=== PATIENT | female | born 1990 | race African-American/Black ===

== ENCOUNTER 2018-11-17 13:28 | Emergency (ER) | payer OTHER ==
[~2018-11-17] VITALS: Ht 167.6 cm; Wt 65.8 kg
[2018-11-17 14:20] VITALS: BP 126/86
--- NOTE | 2018-11-17 14:20 | NUR ---
ED Nurse Note: A/OX4. AMBULATED IN TO ER DUE TO LOWER RIGHT ABDOMINAL PAIN 05/16 WITH N/D X 2-3 WEEKS. NO FEVER.
[2018-11-17] MEDS ORDERED: Acetaminophen 500mg (ES) tab ORAL ONE (15:00)
[2018-11-17 15:21] LABS: APPEARANCE,URINE CLEAR; BILIRUBIN, URINE NEGATIVE (NEGATIVE); COLOR,URINE PALE YELLOW; GLUCOSE, URINE (UA) NEGATIVE (NEGATIVE); KETONES,URINE NEGATIVE (NEGATIVE); LEUKOCYTE ESTERASE ,URINE NEGATIVE (NEGATIVE); NITRITE,URINE NEGATIVE (NEGATIVE); PH,URINE 8 (4.5-8.0); PROTEIN,URINE NEGATIVE (NEGATIVE); UROBILINOGEN,URINE NORMAL MG/DL (0.0-1.0)
--- NOTE | 2018-11-17 17:16 | Diagnostic Imaging Report ---
Indication: Pelvic pain, positive test Technique: Transabdominal and transvaginal images. Doppler interrogation of the bilateral ovaries Comparison: none Findings: Uterus measures 12.3 cm in length by 6.2 cm AP, is slightly retroflexed. Endometrium measures 13 mm thick. No intrauterine gestational sac demonstrated. A tiny anechoic area is seen in the upper endometrium but this is nonspecific in appearance. No myometrial abnormality. Right ovary measures 3.3 cm length. Left ovary measures 4.7 cm length. Left ovary demonstrates a 3 cm diameter corpus luteum. Both ovaries demonstrate normal flow on Doppler imaging. Small amount of free cul-de-sac fluid is demonstrated Impression: No definite intrauterine demonstrated. Differential considerations include very early , spontaneous , sonographically occult ectopic . Very tiny fluid collection within the upper uterine fundus, nonspecific, insufficient to consider a gestational sac. This could represent an early gestational sac, single gestational sac of ectopic , versus other possibility Small amount of free pelvic fluid, likely physiologic
[2018-11-17] MEDS ORDERED: TYLENOL EXTRA500 MG ORAL (17:33)
--- NOTE | 2018-11-17 17:33 | Emergency Room Report ---
History of Present Illness General Chief Complaint: Female Urogenital Problems Source: Patient Present Illness HPI 28-year-old female patient presents the ER complaining of suprapubic pain for the past few weeks. Reports diarrhea symptoms for the past few days. Denies blood in diarrhea. Denies recent travel. Reports diarrhea is watery. Reports pain and fullness when urinating. Reports relief of symptoms after urinating. Denies blood in urine. Denies vaginal discharge. Denies foul-smelling odor. Denies fever, chest pain, shortness of breath. Denies flank pain. Reports recent sexual activity with 1 partner, denies concern for STI. Denies other aggravating or relieving factors. Reports history of , states had an performed. . reports last menstrual period was on the eighth of last month, states was normal. Reports able to pass flatus. Allergies: Coded Allergies: FISH CONTAINING PRODUCTS (Verified Allergy, Severe, Hives, 11/17/18) SHELLFISH DERIVED (Verified Allergy, Severe, Hives, 11/17/18) Patient History Past Medical History: see triage record Last Menstrual Period: Now: No Reviewed Nursing Documentation: PMH: Agreed; PSxH: Agreed Nursing Documentation-PMH Past Medical History: No Stated History Review of Systems All Other Systems: negative except mentioned in HPI Physical Exam Vital Signs Date Time Temp Pulse Resp B/P (MAP) Pulse Ox O2 Delivery O2 Flow Rate FiO2 11/17/18 14:16 86 18 126/86 98 Room Air Sp02 EP Interpretation: reviewed, normal General Appearance: well appearing, no apparent distress, alert, GCS 15, non- toxic Head: normocephalic, atraumatic Eyes: bilateral eye normal inspection, bilateral eye PERRL ENT: hearing grossly normal, normal pharynx, no angioedema, normal voice, uvula midline, moist mucus membranes Neck: full range of motion Respiratory: lungs clear, normal breath sounds, no rhonchi, no respiratory distress, no accessory muscle use, no wheezing, speaking full sentences Cardiovascular #1: regular rate, rhythm, no edema Gastrointestinal: non tender, soft, no mass, non-distended, no guarding, no rebound Genitourinary: no CVA tenderness Musculoskeletal: back normal, digits/nails normal, gait/station normal, normal range of motion, non-tender Neurologic: alert, oriented x3, responsive, motor strength/tone normal, sensory intact Psychiatric: mood/affect normal Skin: no rash Lymphatic: no adenopathy Medical Decision Making PA Attestation Dr. Lambert is my supervising Physician whom patient management has been discussed with. Diagnostic Impression: Primary Impression: ER Course Pt presents to ED c/o suprapubic pain. DDX considered but are not limited to cystitis, pyelonephritis, STI, vaginitis, , BV, yeast infection. No abdominal TTP, negative obturator, negative Redd, negative Rovsing, low suspicion for cholecystitis or appendicitis, does not require imaging or labs at this time. VITAL SIGNS are WNL, patient is afebrile. Ordered UA. ER COURSE Denies recent travel, no blood in stool, does not require antibiotics at this time. Advised patient drink plenty of fluids. Take Tylenol for pain symptoms. UA results negative, does not indicate UTI,will not treat with abx. Urine positive. Patient may take Tylenol for pain symptoms. Do not take Motrin/ibuprofen. Pelvic US shows No definite intrauterine demonstrated. Differential considerations include very early , spontaneous , sonographically occult ectopic . Very tiny fluid collection within the upper uterine fundus, nonspecific, insufficient to consider a gestational sac. This could represent an early gestational sac, single gestational sac of ectopic , versus other possibility Small amount of free pelvic fluid, likely physiologic If concern for STI, followup with STI clinic for testing and treatment. Denies STI concern. Patient is resting comfortably in chair, nontoxic appearing, in no acute distress. Patient states they feel better and is ready to go home. Advised patient to follow-up with [facility] specialist in 1-2 days, states she is a [place] patient will follow-up tomorrow. Advised patient on need for repeat ultrasound and beta quant levels to be drawn. Informed patient that likely early , no adnexal masses noted on ultrasound, patient resting comfortably no acute distress, low suspicion for ectopic at this time. Likely early . ER precautions given. Return to the ER immediately for new or worsening of symptoms including worsening of abdominal pain. DISCHARGE Patient is stable for discharge. Patient resting comfortably, in no acute distress, nontoxic appearing, talking without difficulty. Will provide with patient care instructions and any necessary prescriptions. Patient understands and agrees to treatment plan. Patient encouraged to drink plenty of fluids. Patient to take medication as instructed. Care plan and follow-up instructions provided. Patient questions asked and answered. Reports understanding and agreement to treatment plan. Patient instructed to follow-up with primary care provider in 3 - 5 days. ER precautions given. Patient instructed to return to ER immediately for any new or worsening of symptoms. Including but not limited to fever, abdominal pain , intractable vomiting. - Please note that this Emergency Department Report was dictated using [employer] hydrant installer technology software, occasionally this can lead to erroneous entry secondary to interpretation by the dictation equipment. Labs Test 11/17/18 14:45 Urine Color Pale yellow Urine Appearance Clear Urine pH 8 (4.5-8.0) Urine Specific [place] 1.010 (1.005-1.035) Urine Protein Negative (NEGATIVE) Urine Glucose (UA) Negative (NEGATIVE) Urine Ketones Negative (NEGATIVE) Urine Blood Negative (NEGATIVE) Urine Nitrite Negative (NEGATIVE) Urine Bilirubin Negative (NEGATIVE) Urine Urobilinogen Normal MG/DL (0.0-1.0) Urine Leukocyte Esterase Negative (NEGATIVE) Urine HCG, Qualitative Positive (NEGATIVE) CT/MRI/US Diagnostic Results CT/MRI/US Diagnostic Results : Imaging Test Ordered: Pelvic ultrasound Impression Impression: No definite intrauterine demonstrated. Differential considerations include very early , spontaneous , sonographically occult ectopic . Very tiny fluid collection within the upper uterine fundus, nonspecific, insufficient to consider a gestational sac. This could represent an early gestational sac, single gestational sac of ectopic , versus other possibility Small amount of free pelvic fluid, likely physiologic Last Vital Signs Date Time Temp Pulse Resp B/P (MAP) Pulse Ox O2 Delivery O2 Flow Rate FiO2 11/17/18 14:20 86 18 126/86 98 Room Air Disposition: HOME, SELF-CARE Condition: Stable Scripts Acetaminophen* (TYLENOL EXTRA STRENGTH*) 500 Mg Tablet 500 MG ORAL Q8H PRN for Prn Headache/Temp > 101, #30 TAB 0 Refills Prov: Asif Loco 11/17/18 Referrals: [facility],REFERRING (PCP) Patient Instructions: First Trimester of , [id number] Additional Instructions: Followup with OBGYN in 1-2 days. Take medications as directed. Take Tylenol for pain, do not take Ibuprofen. Patient questions asked and answered. ER precautions given, patient instructed to return to ER immediately for any new or worsening of symptoms including but not limited to chest pain, SOB, intractable vomiting, profuse vaginal bleeding, abdominal pain. Asif Loco Nov 17, 2018 17:33
[2018-11-17 17:40] VITALS: BP 121/85
--- NOTE | 2018-11-17 17:40 | NUR ---
ED Nurse Note: A/Ox4. Pt is cleared by LINDSAY Belcher. DC instruction and prescriptions given, pt verbalized understanding. IV/ID wristband removed. All belongings taken by pt. Denies pain at this time. Pt ambulated out of ER with steady gait.
== END 2018-11-17 17:40 | disposition home or self-care (01) ==
LOC: EMR 16:10
DX: R10.30 Lower abdominal pain, unspecified (principal); R19.7 Diarrhea, unspecified; Z91.013 Allergy to seafood; Z33.1 Pregnant state, incidental
CPT/HCPCS: 76801; 76830; 81003; 81025; 99284